=== PATIENT | male | born 1955 | race Caucasian/White ===

== ENCOUNTER → 2018-09-13 16:47 | Outpatient (CLI) | payer OTHER, MEDICAID, SELFPAY ==
[2018-09-13 17:36] LABS: Alanine Aminotransferase 32 IU/L (21-72); Albumin 4.3 g/dL (3.5-5.0); Albumin Globulin Ratio 1.7 (1.0-2.8); Alkaline Phosphatase 66 U/L (38-126); Aspartate Aminotransferase 18 IU/L (17-59); BUN Creatinine Ratio 15.6 (6-22); Bilirubin Total 0.5 mg/dL (0.2-1.3); Blood Urea Nitrogen 14 mg/dL (9-20); Calcium 9.1 mg/dL (8.4-10.2); Carbon Dioxide 29 mmol/L (22-32); Chloride 103 mmol/L (98-107); Cholesterol 191 mg/dL (140-199); Estimated Glomerular Filt Rate > 60.0 mL/min (>60); Globulin 2.6 g/dL (1.7-4.1); Glucose 100 mg/dL (80-110); HDL Cholesterol 50 mg/dL (40-60); HEMOLYSIS < 15 (0-50); LDL Cholesterol Calculated 94 mg/dL (<100); Potassium 4.9 mmol/L (3.4-5.1); Sodium 140 mmol/L (137-145); Total Protein 6.9 g/dL (6.3-8.2); Triglycerides 234 mg/dL (35-150)
[2018-09-13 17:51] LABS: Vitamin D 25 Hydroxy (D3) 26.9 ng/mL (30.0-100.0)
== END ==
PROVIDERS: PCP Student in an Organized Health Care Education/Training Program; Visit Provider Student in an Organized Health Care Education/Training Program
DX: E55.9 Vitamin D deficiency, unspecified (principal); E78.2 Mixed hyperlipidemia; I10 Essential (primary) hypertension; Z12.5 Encounter for screening for malignant neoplasm of prostate
CPT/HCPCS: 36415; 80053; 80061; 82306; 84153

== ENCOUNTER → 2020-10-23 07:33 | Outpatient (CLI) | payer OTHER, MEDICAID, SELFPAY ==
[2020-10-23] MEDS: COVID-19 VACC #1, MRNA(MOD) 100 MCG/0.5 ML VIAL IM (07:41)
== END ==
PROVIDERS: Family Provider Internal Medicine; PCP Student in an Organized Health Care Education/Training Program; Visit Provider Internal Medicine
DX: Z23 Encounter for immunization (principal)
CPT/HCPCS: 0011A; 91301

== ENCOUNTER → 2020-11-19 07:46 | Outpatient (CLI) | payer OTHER, MEDICAID, SELFPAY ==
[2020-11-19] MEDS: COVID-19 VACC #2, MRNA(MOD) 100 MCG/0.5 ML VIAL IM (07:53)
== END ==
PROVIDERS: Family Provider Internal Medicine; PCP Student in an Organized Health Care Education/Training Program; Visit Provider Internal Medicine
DX: Z23 Encounter for immunization (principal)
CPT/HCPCS: 0012A; 91301

== ENCOUNTER → 2024-08-23 09:27 | Outpatient (CLI) | payer MEDICARE, SELFPAY ==
--- NOTE | 2024-08-23 17:26 | DI.NM.S_ITS ---
DATE OF SERVICE: 08/23/2024 PROCEDURE: Exercise perfusion study. INDICATIONS: 1. Precordial chest pain. 2. Cardiac stress. RADIOPHARMACEUTICAL: 25.2 mCi technetium-99m Myoview IV was injected at stress and 12.2 mCi technetium-99m Myoview IV was injected at rest. CARDIAC STRESS: The patient underwent exercise perfusion study under the supervision of an attending staff using standard Bashir protocol. He walked on Bashir protocol for 7 minutes and 16 seconds, achieved maximum heart rate of 140 which was 92% of target heart rate. Resting blood pressure 122/80 and peak blood pressure 192/90 mmHg. 10.1 METs of workload. MARIA ANTONIA positive 1%. Baseline rhythm is sinus. During stress, no convincing ischemic changes. Occasional PVCs. No complex arrhythmia. No chest pain. He had some shortness of breath. RAW DATA: Resting LV ejection fraction 58% and stress LV ejection fraction 75%. No obvious wall motion abnormalities. Resting end- diastolic volume 101 mL. TID ratio 1.04, which is within normal limits. Lung/heart ratio 0.29, which is within normal limits. MYOCARDIAL PERFUSION SCAN: Stress supine, resting supine, and stress prone images were compared to each other. Stress supine and resting supine images revealed small size, mildly decreased perfusion of basal inferior wall, which got completely resolved during stress prone images suggestive of diaphragmatic tissue attenuation artifact. No convincing ischemia or infarction. CONCLUSION: I will call this study a normal myocardial perfusion study with evidence of tissue attenuation artifact, which got resolved during stress prone images as stated above. Preserved LV function. Fair exercise tolerance. Normal hemodynamic response. No anginal symptoms. No significant complex arrhythmias. Overall, low-risk myocardial perfusion scan. Tacho Dodson - DATABASE MANAGEMENT SPECIALIST/fn/[place] doc#: [id number]/job#: [id number] dd: 08/23/2024 16:53:00 dt: 08/23/2024 17:16:00 DICTATING MD/COPIES TO: Ashli Bernal MD COPIES MNE: [place];
== END ==
LOC: NUCM 09:30
PROVIDERS: Family Provider Internal Medicine; PCP Family Medicine; Referring Provider Family Medicine; Visit Provider Family Medicine
DX: R07.2 Precordial pain (principal)
CPT/HCPCS: 78452; 93017; A9502

== ENCOUNTER → 2025-05-27 11:30 | Outpatient (CLI) | payer MEDICARE, SELFPAY ==
--- NOTE | 2025-05-27 11:31 | DI.US.S_ITS ---
PROCEDURE: US ABD AORTA ANEURYSM SCREEN INDICATIONS: screening for AAA TECHNIQUE: Real time scanning was performed of the aorta and iliac arteries, with image documentation. COMPARISON: None. FINDINGS: Aorta: Proximal aortic obscured by overlying bowel gas. Mid-aorta measures 2.1 cm. Distal aortic diameter is 1.4 cm. Iliac arteries: Right common iliac artery measures 1.0 cm. Left common iliac artery measures 0.8 cm. IMPRESSION: Proximal aorta obscured by overlying bowel gas; otherwise no abdominal aortic or proximal common iliac artery aneurysm. Dictated by: Aristeo PALACIO Interpreted: Suresh Castillo MD on 05/27/2025 at 12:36 Transcribed by: ENOCH on 05/27/2025 at 12:36 Approved by: Suresh Castillo M.D. on 05/27/2025 at 21:23
== END ==
LOC: US 11:30
PROVIDERS: Family Provider Internal Medicine; PCP Family Medicine; Referring Provider Family Medicine; Visit Provider Family Medicine
DX: Z13.6 Encounter for screening for cardiovascular disorders (principal)
CPT/HCPCS: 76706

== ENCOUNTER 2025-06-23 11:43 | Day surgery (SDC) | payer MEDICARE, SELFPAY ==
--- NOTE | 2025-06-23 | PATH_ITS ---
[facility] Accession Number: [id number] No. of containers..04 Tissue . 01 Material submitted: . PART A: colon - COLON, SIGMOID POLYP @ 50 PART B: rectum - RECTAL TUMOR PART C: rectum - RECTAL POLYP PART D: colon - CECAL POLYP . 01 Diagnosis: A. SIGMOID COLON POLYP: Hyperplastic polyp. . B. 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 . C. RECTAL POLYP: Tubular adenoma. . D. CECAL POLYP: Tubular adenoma. [facility] 07/02/2025 1507 Local . 01 Comment: Regarding the rectal tumor biopsies, no definitive invasion is seen however there are foci suspicious for invasion (multiple levels are examined). Due to the lack of definitive invasion, mismatch repair protein status testing is deferred, however, can be performed upon request. . As part of routine lead quality control technician, part B has been reviewed by Dr. Kaushal Jones, who agrees with the interpretation. . 01 Electronically signed: . Melinda Post DO, Pathologist NPI- [id number] . 01 Gross description: . A. Received in formalin with two identifiers and sigmoid polyp at 50 is a single kraft to kraft-brown soft tissue fragment, 0.7 cm in greatest dimension, submitted entirely in A1. B. Received in formalin with two identifiers and rectal tumor are four friable kraft soft tissue fragments, 0.4 to 0.5 cm in greatest dimension, submitted entirely in B1. C. Received in formalin with two identifiers and rectal polyp is a single kraft soft tissue fragment, 0.9 cm in greatest dimension, submitted entirely in C1. D. Received in formalin with two identifiers and cecal polyp is a single kraft soft tissue fragment, 0.6 cm in greatest dimension, submitted entirely in D1. ([id number]) /MRV 06/26/2025 1946 Local . 01 Pathologist provided ICD-10: Z12.11 . 01 CPT . 460933, 647909, 826993, [id number] Specimen Comment: A courtesy copy of this report has been sent to [facility] Pathology Performed at: [address] [address], [place], [place] [id number] MD Jason Gao MD Phone: [phone]
--- NOTE | 2025-06-23 | DI.CT.S_ITS ---
PROCEDURE: CT CHEST ABD PEL W CON INDICATIONS: Rectal tumor, metastatic workup TECHNIQUE: After the administration of intravenous contrast, 5 mm thick sections acquired from the lung apices to the symphysis. 5 mm coronal and sagittal reformats were performed, with additional 7 mm MIP reformats through the lungs. For radiation dose reduction, the following was used: automated exposure control, adjustment of mA and/or kV according to patient size. COMPARISON: None. FINDINGS: Image quality: Excellent. CHEST: Lower Neck: No enlarged lymph nodes. Thyroid: No thyroid nodules which require sonographic follow up, per consensus guidelines. Axillae: No enlarged lymph nodes. Chest Wall: Unremarkable. Lungs and Pleura: No pneumothorax or pleural effusions. No consolidation. 2 mm anterior lateral right upper lobe nodule on image 139. 3 mm anterior right middle lobe nodule abutting the fissure on image 208. Heart: Heart size is normal. No pericardial effusion. Coronary artery calcifications are noted. Thoracic Vessels: The aorta and pulmonary arteries demonstrate normal size. Calcifications are noted in the thoracic arch. No central pulmonary emboli detected. Mediastinum and Angie: No enlarged lymph nodes. Esophagus: No wall thickening. No hiatal hernia. ABDOMEN: Liver: No solid mass. Gallbladder: No radiopaque gallstones or wall thickening. Biliary ducts: No biliary dilation. Pancreas: No ductal dilation. Spleen: Size is within normal limits. Adrenal Glands: No adrenal nodules. Kidneys and Ureters: No hydronephrosis. No solid mass. No complex renal cystic lesion which requires follow up. Stomach and Bowel: Lobular asymmetric rectal wall thickening extending from the 2 o'clock to 7 o'clock position best seen on image 2, 200 and 3. Superior to inferior extent measures at least 4.6 cm on image 3 , 79. Colonic diverticulosis is present. Large bowel is relatively decompressed. Remaining large bowel is grossly unremarkable. Remaining stomach and small bowel are otherwise normal. Peritoneum: No abnormal intraperitoneal fluid. No free air. Ventral Wall: No significant ventral hernia. Abdominal Nodes: No retroperitoneal or mesenteric adenopathy by size criteria. Vessels: Aorta and inferior vena cava are normal in size. PELVIS: Pelvic Organs: Unremarkable. Bladder: No bladder wall thickening, accounting for underdistention. Pelvic Nodes: No enlarged lymph nodes. Indeterminate right pelvic sidewall node measuring 6 mm on image 2, 197. Miscellaneous: No inguinal hernias are seen. Bones: No aggressive osseous abnormality. Diffuse bilateral SI joints. Postoperative fusion of the lower cervical spine noted. Diffuse DISH noted in the thoracic and mid to upper lumbar spine. IMPRESSION: Lobular asymmetric rectal wall thickening/polypoid mass concerning for rectal cancer. Correlate with the biopsy results. No evidence of metastatic liver disease. No bulky adenopathy in abdomen or pelvis. Indeterminate 6 mm right pelvic sidewall node. Enlarged prostate and seminal vesicle. Incidental pulmonary nodules measuring up to 3 mm in diameter as described above. These are indeterminate and warrant close attention on subsequent studies Dictated by: Lizeth Castro M.D. on 06/24/2025 at 19:55 Approved by: Lizeth Castro M.D. on 06/24/2025 at 20:08
--- NOTE | 2025-06-23 06:28 | PM.PREOP ---
Pre-operative Note Interval Note History & Physical reviewed/Exam performed by Physician: Yes Changes to H&P: No ASA Class (for procedural sedation): II
[2025-06-23 12:07] VITALS: BP 149/81; PULSE 86; RESP 16; TEMP 36.1; O2SAT 95
[2025-06-23] MEDS: LACTATED RINGERS 1,000 ML 42 ML IV (12:21)
--- NOTE | 2025-06-23 13:11 | P.OP.COLON_ITS ---
Operative Date/Time/Diagnoses Date of procedure: 06/23/25 Time of procedure: 13:40 Pre-op diagnosis: Screening colonoscopy, +FH, +cologuard Post-op diagnosis: other (Rectal tumor) Procedure & Clinicians Study performed: Colonoscopy with polypectomy, biopsy Same procedure(s) as scheduled: Yes Indications: 70yo M, +FH, +cologuard Surgeon: Tono Vitale Anesthesia Type: MAC +/- Procedure Notes SCOAP/Timeout: Performed Procedure in detail: Colonoscopy Patient placed in left lateral recumbent position. Time out was performed. Procedural sedation was administered by anesthesia. Examination began with a thorough inspection of the perianal area. There was no evidence of fissures, fistulae, external hemorrhoids or cutaneous malignancy. The colonoscope was then placed into the rectum and the lumen was insufflated with carbon dioxide. The scope was carefully advanced forward. Ultimately the cecum was intubated and confirmed by identification of the ileocecal valve, the appendiceal orifice and the confluence of the taenia. The scope was then slowly withdrawn examining the colon thoroughly in all directions. In the rectum, retroflexion of the scope was performed for inspection of the distal rectum and anal canal. ?Significant colonoscopy findings: ?1. Quality of the preparation-good, [place] 2-3, improved with irrigation/suction ?2. Rectal tumor, 5cm from anal verge, approximately 4-5cm, highly suspicious for neoplasm, biopsied 3. Three polyps, sessile, adenomatous appearing 5mm, one in cecum, one at 50cm and one just inside anal verge; all removed with cold snare and retrieved for pathology Scope withdrawal time: 11 minutes Findings: polyp(s) and possible cancer Specimen(s): other (rectal tumor, polyps) Estimated Blood Loss: 5 Complications: none Impression: Rectal tumor, highly suspicious for neoplasm Multiple polyps Check CEA Check CT CAP Post-procedure Recommendations: Will call with biopsy results Plan for aftercare: PACU then home Follow up: as needed Disposition: PACU
[2025-06-23 13:43] VITALS: BP 115/69; PULSE 71; RESP 16; TEMP 36.3; O2SAT 96
[2025-06-23 13:50] VITALS: BP 142/80; PULSE 71; RESP 18; O2SAT 98
[2025-06-23 14:04] VITALS: BP 142/79; PULSE 61; RESP 14; TEMP 36.6; O2SAT 98
[2025-06-23 15:13] LABS: Albumin 4.2 g/dL (3.5-5.0); Blood Urea Nitrogen 13 mg/dL (9-20); Calcium 9.3 mg/dL (8.4-10.2); Carbon Dioxide 27 mmol/L (22-32); Chloride 105 mmol/L (98-107); Estimated Glomerular Filt Rate > 60 mL/min (>60); Glucose 105 mg/dL (70-99); HEMOLYSIS < 15 (0-50); Phosphorous 2.9 mg/dL (2.3-3.7); Potassium 4.4 mmol/L (3.4-5.1); Sodium 139 mmol/L (137-145)
[2025-06-23 15:57] LABS: Carcinoembryonic Antigen 7.3 ng/mL (0.1-3.0)
== END 2025-06-23 15:40 | disposition home or self-care (01) ==
PROVIDERS: Family Provider Internal Medicine; PCP Family Medicine; Referring Provider Family Medicine; Visit Provider Surgery
PROC: 0DJD8ZZ Inspection of Lower Intestinal Tract, Via Natural or Artificial Opening Endoscopic (ICD-10-PCS; CPT 45378; principal; 2025-06-23 13:00)
DX: Z12.11 Encounter for screening for malignant neoplasm of colon (principal); D37.5 Neoplasm of uncertain behavior of rectum; D12.0 Benign neoplasm of cecum; D12.8 Benign neoplasm of rectum; K63.5 Polyp of colon; R19.5 Other fecal abnormalities; Z80.0 Family history of malignant neoplasm of digestive organs; R91.8 Other nonspecific abnormal finding of lung field; I25.10 Atherosclerotic heart disease of native coronary artery without angina pectoris; I10 Essential (primary) hypertension; N40.0 Benign prostatic hyperplasia without lower urinary tract symptoms; E78.5 Hyperlipidemia, unspecified; E66.9 Obesity, unspecified; Z68.27 Body mass index [BMI] 27.0-27.9, adult; Z98.1 Arthrodesis status
CPT/HCPCS: 45385; 45380; 71260; 74177; 80069; 82378; J2704; J7120; Q9967

== ENCOUNTER → 2025-07-08 18:30 | Outpatient (CLI) | payer MEDICARE, SELFPAY ==
--- NOTE | 2025-07-08 18:32 | DI.MRI.S_ITS ---
PROCEDURE: MR PELIS WO/W CON INDICATIONS: tumor - rectal protocol TECHNIQUE: Coronal HASTE, sagittal T2 FSE, axial T1 FSE, axial and coronal nonbreath-hold T2 FSE. Axial dynamic VIBE during administration of contrast. Post-contrast axial and coronal VIBE/2-D FLASH with fat saturation from the iliac crests to the symphysis. Optional diffusion weighted imaging and ADC may be performed. COMPARISON: Located Within [facility], CT, CT CHEST ABD PEL W CON, 06/23/2025, 15:31. FINDINGS: Image quality: Diagnostic Rectum: Morphology: Semi circumferential Clock face of tumor involvement: 5 to 1 o'clock Mucinous (high T2 signal): No Craniocaudal length: 4.9 cm Distance to anal verge: 7.3 cm Distance to top of sphincter complex/anorectal junction: 3.3 cm Relationship to anterior peritoneal reflection: Straddles Tumor at or below puborectalis sling: Above T staging: T2. No measurable disease outside the muscularis layer EMVI equivocal (for example image 5/8 anteriorly) Pelvic organ involvement: None Regional lymph nodes (mesorectal, inguinal, iliac): Right obturator prominent rounded node measures 5-6 mm. Few prominent mesorectal nodes are also present, for example image 5/1. Non regional lymph nodes: None seen within the field of view Other bowel and peritoneum: No bowel obstruction in the lower abdomen. Colonic diverticula are seen. Sequelae of BPH nodules partially evaluated in the prostate. Bones: No aggressive appearing osseous abnormality. IMPRESSION: T2 N1 mid to upper rectal tumor straddling the peritoneal reflection. EMVI equivocal. No suspicious nonregional lymph nodes identified within the field of view. Dictated by: Elio Brady M.D. on 07/09/2025 at 6:41 Approved by: Elio Brady M.D. on 07/09/2025 at 6:49
== END ==
LOC: MRI 18:31
PROVIDERS: Family Provider Internal Medicine; PCP Family Medicine; Referring Provider Internal Medicine Hematology & Oncology; Visit Provider Internal Medicine Hematology & Oncology
DX: D49.0 Neoplasm of unspecified behavior of digestive system (principal); K57.90 Diverticulosis of intestine, part unspecified, without perforation or abscess without bleeding
CPT/HCPCS: 72197; A9579